=== PATIENT | female | born 1990 | race Caucasian/White ===

== ENCOUNTER → 2017-04-17 | Outpatient (CLI) | payer OTHER ==
[~2017-04-17] MED LIST: [UNRECOGNIZED DRUG - OTHER]
== END | disposition home or self-care (01) ==
LOC: C.PAPS 09:37
PROVIDERS: ATTEND Obstetrics & Gynecology
DX: Z12.4 Encounter for screening for malignant neoplasm of cervix (principal)

== ENCOUNTER 2019-03-27 20:18 | Inpatient (IN) ==
[2019-03-27] MEDS ORDERED: PENICILLIN G POTASSIUM 6 MU in DEXTROSE 5% 250 ML IV STA (20:43)
[2019-03-27] MEDS ORDERED: OXYTOCIN 30 UNITS/500 ML BAG IV PRN (20:43)
--- NOTE | 2019-03-27 21:06 | History & Physical Report ---
Date of Service March 27, 2019 Assessment & Plan (1) Normal labor: IUP at 40 weeks with SPROM & spontaneous contractions will begin PCN prophylaxis will check PIH labs as baseline. Patient hopes to have unmedicated . History of Present Illness Primary Care Provider: NO PCP Patient is a 28 yo white female EDC 03/27/19 who presents at 40 weeks with SPROM at 2020 tonight after having regular contractions since 1000 today. Fluid is clear. complicated by obesity for which a growth scan was done at 32 weeks. Baby was at 27th %tile for EFW. GBS (+), No elevated BP's during course, but pressures are elevated upon arrival in L&D. Patient denies any PIH symptoms. 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 Beliefs That Will Affect Care: None marital status: Current Living Situation: Spouse Other Information That Helps Us Care for You: No Feels Safe at Home: Yes Safety Concerns: Feels Safe At This Time Smoking Status: Never smoker Hx Alcohol Use: No Hx Substance Use: No Review of Systems All systems reviewed & are unremarkable except as noted in HPI & below Physical Exam Constitutional: WD/WN, vitals as above Respiratory: normal respiratory effort, lungs clear to auscultation Cardiovascular: RRR, no murmur, no edema Gastrointestinal (Abdomen): normal bowel sounds, soft, nontender, no hepatosplenomegaly Psychiatric: A+Ox3, euthymic affect Genitourinary: OB Exam Abdomen: + vertex and + estimated weight (6-7 pounds) Manual OB Exam: + cervical dilation 3 cm, + cervical effacement 50%, + station -2 and + amniotic fluid clear OB Exam Monitor Tracing: + external FHT monitor used, + external uterine monitor used, + category I and + normal FHT variability Results & Data Vital Signs (Past 12 Hours) Vital Signs Temp Pulse Resp BP 03/27/19 20:45 20 03/27/19 20:41 97.5 F L 24 03/27/19 20:37 98 H 147/97 H 03/27/19 20:34 92 H 143/97 H 03/27/19 20:30 104 H 145/101 H Code Status & VTE Plan VTE Prophylaxis Plan VTE Prophylaxis will be ordered: No
[2019-03-27] MEDS: LACTATED RINGER'S 1,000 ML IV PRN (21:26)
[2019-03-27 21:31] LABS: Hematocrit (blood only) 36.4 % (37-47); Hemoglobin 12.6 g/dL (12.0-16.0); Mean Corpuscular Hemoglobin 29.6 pg (25-34); Mean Corpuscular Volume 85.6 fL (80-100); Platelet Count 336 K/uL (130-400); RDW Standard Deviation 40.7 fL (36.4-46.3); Red Blood Count 4.25 M/uL (4.2-5.4); White Blood Count 16.56 K/uL (4.8-10.8)
[2019-03-27 21:36] LABS: Mean Corpuscular Hgb Conc 34.6 g/dL (32-36)
[2019-03-27 21:55] LABS: Partial Thromboplastin Time 26.8 Seconds (21.0-31.0); Prothrombin Time 9.8 Seconds (9.0-12.0)
[2019-03-27 22:02] LABS: Creatinine Clr Calc Pharmacy 136.8 ml/min; Est GFR (African American) 102.9; Est GFR (Non-African American) 88.8
[2019-03-28] MEDS: PENICILLIN G POTASSIUM 3 MU in DEXTROSE 5% 100 ML IV PRN ×2 (01:14→05:19)
[2019-03-28] MEDS ORDERED: ePHEDrine sulfate 50 MG/ML AMP ONE (01:24)
[2019-03-28] MEDS ORDERED: fentaNYL citrate 100 MCG/2 ML VIAL ONE (01:24)
[2019-03-28] MEDS ORDERED: BUPIVACAINE 0.25% 30 ML VIAL ONE (01:25)
[2019-03-28] MEDS ORDERED: fentaNYL 2MCG/ML ROPIV 1.25MG/ML 100 ML BAG EPI ONE (01:25)
[2019-03-28] MEDS ORDERED: NALOXONE HCL 1 MG in SODIUM CHLORIDE 0.9% 1000ML 1,000 ML IV PRN (01:56)
[2019-03-28] MEDS ORDERED: ONDANSETRON INJ 2 MG/ML 2 ML VIAL IV PRN (01:56)
[2019-03-28] MEDS ORDERED: DiphenhydrAMINE HCL 50 MG/ML VIAL IV PRN (01:56)
[2019-03-28] MEDS ORDERED: NALBUPHINE HCL INJ 10 MG/ML AMP IV PRN (01:56)
[2019-03-28] MEDS ORDERED: NALOXONE HCL 0.4 MG/1 ML VIAL/CARP IV PRN (01:56)
[2019-03-28] MEDS ORDERED: ePHEDrine sulfate 50 MG/ML AMP IV PRN (01:56)
[2019-03-28] MEDS ORDERED: fentaNYL 2MCG/ML ROPIV 1.25MG/ML 100 ML BAG EPI PRN (01:56)
--- NOTE | 2019-03-28 02:00 | Anesthesiology Consultation ---
Date of Service March 28, 2019 Assessment & Plan Chart Review Chart Review: Patient NOT seen in Pre Admission Testing and Acceptable Risk for Labor Epidural Consults Requested none ASA ASA2 Proposed Anesthesia Anesthesia Type: Labor Epidural and CSE Risk / Benefits Reviewed With: PT / POA / Parent / Guardian, Accepts Plan and Informed Consent Obtained History Height/Weight Height: 5 ft 6 in Weight: 139.253 kg Allergies Allergy/AdvReac Type Severity Reaction Status Date / Time No Known Drug Allergies Allergy Verified 03/21/19 09:53 Medications Home Medications Medication Instructions Recorded Confirmed Last Taken prenat.vits,annel,rdl-nadd-otqbn 1 tab PO DAILY 10/24/18 03/27/19 Unknown Active Medications Generic Name Dose Route Start Last Admin Trade Name Freq PRN Reason Stop Dose Admin Lactated Ringer's 1,000 mls @ 125 mls/hr 03/27/19 20:43 03/27/19 21:26 Lr IV 03/29/19 20:42 125 mls/hr .Q8H PRN Administration L&D Protocol Protocol Penicillin G Potassium 3 mu/ 106 mls @ 100 mls/hr 03/27/19 20:43 03/28/19 01:14 Dextrose IV 04/06/19 20:42 100 mls/hr Q4H PRN Administration Give until delivery NPO Date Last Intake of Fluids: 03/28/19 Time Last Intake of Fluids: 01:00 Date Last Intake of Solids: 03/27/19 Time Last Intake of Solids: 14:00 Past Medical History Medical History History of varicella Exercise / Class Metabolic Activity II 4-5 Yardwork/Stairs/Walk up hill Past Family History Family History Grandmother (Paternal) Breast cancer Mother Diabetes Past Surgical History Surgical History S/P wisdom tooth extraction Past Anesthesia History No Hx of Anesthesia Complications and No Family Hx of Anesthesia Complications History of PONV No Hx of PONV and History of PONV Social History Smoking Status: Never smoker Hx Alcohol Use: No Hx Substance Use: No substance use type: does not use Review of Systems no chest pain or sob Physical Exam Vital Signs Last Vital Signs Temp 36.4 C L 03/28/19 01:17 Pulse 70 03/28/19 02:01 Resp 22 03/28/19 01:17 BP 123/83 03/28/19 01:17 Pulse Ox 100 03/28/19 02:01 ENMT Mouth: no TMJ abnormality Thyromental Distance: > or= 3.5 Finger Breadths Mallampati Class: II Neck normal visual inspection Respiratory normal respiratory effort Auscultation: lungs clear to auscultation bilaterally Cardiovascular Rate/Rhythm: regular rate and regular rhythm Musculoskeletal Spine: normal cervical ROM Neurologic moves all extremities Psychiatric Orientation: alert and oriented x 3 Testing Laboratory Results 03/27/19 21:18 03/27/19 21:34 PT 9.8 Seconds (9.0-12.0) 03/27/19 21:34 INR 1.0 (0.9-1.1) 03/27/19 21:34 APTT 26.8 Seconds (21.0-31.0) 03/27/19 21:34
[2019-03-28] MEDS: LACTATED RINGER'S 1,000 ML IV PRN (02:30)
[2019-03-28] MEDS ORDERED: Nursing to Pharmacy Communication ONE (06:36)
[2019-03-28] MEDS ORDERED: HYDROCORTISONE ACETATE 25 MG SUPP PR PRN (07:26)
[2019-03-28] MEDS ORDERED: OXYTOCIN 30 UNITS/500 ML BAG IV PRN (07:26)
[2019-03-28] MEDS ORDERED: OXYCODONE/ACETAMINOPHEN 5mg/325mg TAB PO PRN (07:26)
[2019-03-28] MEDS ORDERED: DIPHTHERIA/TETANUS/PERTUSSIS 0.5 ML SYR/VIAL IM ONE (07:26)
[2019-03-28] MEDS ORDERED: SUPERCREAM 0.870% 15 GM JAR EXT PRN (07:26)
[2019-03-28] MEDS ORDERED: BENZOCAINE 20% AER SPR 82.5 GM CAN EXT PRN (07:26)
[2019-03-28] MEDS: DOCUSATE SODIUM 100 MG CAP PO SCH ×2 (08:31→20:16)
[2019-03-28] MEDS: PRENATAL VITAMIN 1 TAB PO SCH (08:31)
[2019-03-28] MEDS: IBUPROFEN 600 MG TAB PO PRN ×2 (08:31→14:01)
--- NOTE | 2019-03-28 08:45 | Anesthesia Procedure Note ---
Date of Service March 28, 2019 Anesthesia Post Epidural Note Vital Signs Vital Signs: Temp Pulse Resp BP Pulse Ox 36.6 C 78 20 116/65 84 L 03/28/19 05:43 03/28/19 08:38 03/28/19 08:23 03/28/19 08:38 03/28/19 07:07 Pain Intensity Left Generalized: Pain Intensity: 3 Notes Mental Status: alert / awake / arousable Nausea / Vomiting: adequately controlled Pain: adequately controlled Airway Patency, RR, SpO2: stable & adequate BP & HR: stable & adequate Hydration State: stable & adequate Neuraxial Anesthesia: was administered and sensory block is resolving Anesthetic Complications: no major complications apparent and Pt Satisfied with anesthetic care Epidural: Removed without complications and With tip intact
--- NOTE | 2019-03-28 11:41 | Delivery Summary ---
DATE OF OPERATION: 03/28/2019 The patient is a 28-year-old white female G1, P0 with an EDC of 03/27/2019, who presents on her due date with spontaneous rupture of membranes at approximately 8:20 on 03/27. She was having regular contractions at that time. She requested epidural analgesia, which was effective. She progressed to complete with her spontaneous contractions. She pushed effectively over intact perineum for delivery of a viable male . Mouth and nasopharynx were suctioned on the perineum. There was thin meconium noted upon delivery. The infant was then placed on mother's abdomen for further attention and drying. The cord was clamped and cut after approximately 1 minute. The placenta was expressed intact with a 3-vessel cord. A first-degree vaginal laceration was repaired with 3-0 chromic in the usual fashion. A first-degree left labial laceration was not bleeding and not repaired. Estimated blood loss was 200 mL. Mother and were doing well after delivery. I attest to the content of the Intraoperative Record and any orders documented therein. Any exception s are noted below.
[2019-03-29] MEDS: IBUPROFEN 600 MG TAB PO PRN ×4 (04:36→20:39)
[2019-03-29 06:34] LABS: Hematocrit (blood only) 30.7 % (37-47); Hemoglobin 10.4 g/dL (12.0-16.0); Mean Corpuscular Hemoglobin 29.3 pg (25-34); Mean Corpuscular Hgb Conc 33.9 g/dL (32-36); Mean Corpuscular Volume 86.5 fL (80-100); Mean Platelet Volume 9.9 fL (7.4-10.4); Platelet Count 282 K/uL (130-400); RDW Coefficient of Variation 13.2 % (11.5-14.5); RDW Standard Deviation 41.9 fL (36.4-46.3); Red Blood Count 3.55 M/uL (4.2-5.4); White Blood Count 14.67 K/uL (4.8-10.8)
--- NOTE | 2019-03-29 08:01 | Obstetrical Progress Note ---
Date of Service March 29, 2019 Assessment & Plan (1) Normal labor: PPD#1 , doing well. likely home tomorrow Subjective Ambulation: ambulating normally Voiding: no voiding problems Passing Gas:: Yes Diet Tolerance:: regular diet Lochia:: Small Feeding Type:: breast feeding Physical Exam Constitutional WD/WN, vitals as above Eyes PERRL, conjunctivae normal, anicteric sclerae Neck normal visual inspection Respiratory normal respiratory effort and able to speak in complete sentences; no respiratory distress and no labored breathing Cardiovascular Rate/Rhythm: regular rate and regular rhythm Extremities: no edema Chest (Breasts) Chest: normal inspection of chest Gastrointestinal (Abdomen) Inspection/Auscultation: abdomen normal to inspection Soft, postgravid Psychiatric A+Ox3, euthymic affect Genitourinary OB Exam Abdomen: + fundal height Fundus: + firm and + relation to umbilicus (fundus just below umbilicus); not tender Results & Data Vital Signs (Past 12 Hours) Vital Signs Temp Pulse Resp BP 03/29/19 04:30 98.1 F 76 18 124/84 03/28/19 23:30 98.6 F 81 18 110/69
[2019-03-29] MEDS: DOCUSATE SODIUM 100 MG CAP PO SCH ×2 (08:53→20:40)
[2019-03-29] MEDS: PRENATAL VITAMIN 1 TAB PO SCH (08:53)
[2019-03-29] MEDS: ACETAMINOPHEN 325 MG TAB PO PRN ×2 (08:53→16:00)
[2019-03-29] MEDS ORDERED: bisacodyL 5 MG TABEC PO SCH (20:00)
--- NOTE | 2019-03-30 08:07 | Obstetrical Progress Note ---
Date of Service March 30, 2019 Assessment & Plan (1) Supervision of normal first : 28yo PPD 2 from [facility]. Doing well. Stable for discharge Subjective Ambulation: ambulating normally Voiding: no voiding problems Passing Gas:: Yes Diet Tolerance:: regular diet Lochia:: Moderate Feeding Type:: breast feeding Physical Exam Constitutional WD/WN, vitals as above Respiratory normal respiratory effort; no respiratory distress and no labored breathing Gastrointestinal (Abdomen) Inspection/Auscultation: abdomen normal to inspection; abdomen not distended Percussion/Palpation: abdomen soft; abdomen nontender, no guarding and abdomen not rigid Genitourinary OB Exam Abdomen: + fundal height Fundus: + firm and + relation to umbilicus (Below); not tender and not boggy Results & Data Vital Signs (Past 12 Hours) Vital Signs Temp Pulse Resp BP Pulse Ox 03/30/19 07:00 36.6 C 61 16 124/84 98 03/29/19 23:55 36.7 C 57 L 16 140/81 95
[2019-03-30 08:21] LABS: Hematocrit (blood only) 33.2 % (37-47); Hemoglobin 11.2 g/dL (12.0-16.0)
[2019-03-30] MEDS: PRENATAL VITAMIN 1 TAB PO SCH (08:23)
[2019-03-30] MEDS: DOCUSATE SODIUM 100 MG CAP PO SCH (08:23)
[2019-03-30] MEDS ORDERED: bisacodyL 10 MG SUPP PR PRN (09:00)
== END 2019-03-30 11:05 | disposition home or self-care (01) | DRG 807 ==
LOC: OPB 20:18 → 4S1 20:20 → 4S2 03-28 09:35